=== PATIENT | female | born 1960 | race African-American/Black ===

== ENCOUNTER 2022-03-15 15:43 | Emergency (ER) | payer MEDICARE, OTHER ==
[~2022-03-15] VITALS: Ht 157.5 cm; Wt 75.7 kg
[2022-03-15] MEDS ORDERED: FIORICET 50-301 EACH PEG (16:37)
[2022-03-15] MEDS ORDERED: AMOXICILLIN500 MG PO (16:37)
== END 2022-03-15 17:25 | disposition home or self-care (01) ==
LOC: ER 15:58
DX: K08.89 Other specified disorders of teeth and supporting structures (principal); F31.9 Bipolar disorder, unspecified
CPT/HCPCS: 99282